=== PATIENT | female | born 1950 | race American Indian/Alaskan Native ===

== ENCOUNTER 2016-08-24 08:31 | Outpatient (CLI) | payer MEDICARE ==
--- NOTE | 2016-08-24 10:32 | Ultrasound Report ---
Pelvic and transvaginal sonography: History: Left ovary and normal shape. Findings: Uterus measures 9.4 x 4.6 x 7.2 cm. Dilated endometrium with cystic mass within the endometrium measuring 4.3 x 2.5 x 5.9 cm. There is a fibroid identified in the fundus of the uterus measuring 3 x 2.2 x 2.9 cm. Right ovary 1.9 x 2.1 x 2.3 cm. No mass. Left ovary 2 x 1.5 x 2.8 cm. No mass. Impression: Fibroid uterus. Single large cystic mass within the endometrium.
== END 2016-08-24 08:32 | disposition home or self-care (01) ==
LOC: SPVWC 08:31
PROVIDERS: ATTEND Internal Medicine
DX: D25.9 Leiomyoma of uterus, unspecified (principal); N85.8 Other specified noninflammatory disorders of uterus; N83.8 Other noninflammatory disorders of ovary, fallopian tube and broad ligament
CPT/HCPCS: 76830; 76856